=== PATIENT | male | born 1995 | race Two or more races ===

== ENCOUNTER 2020-03-29 18:39 | Inpatient (IN) | payer OTHER ==
[~2020-03-29] VITALS: Ht 172.7 cm; Wt 94.1 kg
[2020-03-29] MEDS ORDERED: OMNIPAQUE 350 MG/ML, 100ML BOTTLE ONE (19:51)
[2020-03-29 20:02] LABS: BASOPHILS % (AUTO) 1 % (0-1); EOSINOPHILS % (AUTO) 1 % (1-7); LYMPHOCYTES % (AUTO) 35 % (22-44); MEAN CORPUSCULAR HEMOGLOBIN 30.7 pg (27.5-34.5); MEAN CORPUSCULAR HGB CONC 35.8 g/dL (33.2-36.2); MEAN PLATELET VOLUME 8.4 fL (7.4-10.4); MONOCYTES % (AUTO) 9 % (2-9); NEUTROPHILS % (AUTO) 54 % (42-75); PLATELET COUNT 338 x10^3/uL (130-400); RED BLOOD COUNT 5.66 x10^6/uL (4.38-5.82); RED CELL DISTRIBUTION WIDTH 12.9 % (9.4-14.8)
[2020-03-29 20:14] LABS: ALANINE AMINOTRANSFERASE 49 U/L (12-78); ALBUMIN 4.4 g/dL (3.4-5.0); ANION GAP 8 mmol/L (5-15); CHLORIDE 106 mmol/L (98-107); CREATININE 1.15 mg/dL (0.7-1.3)
[2020-03-29 20:25] LABS: ALKALINE PHOSPHATASE 110 U/L (45-117); BILIRUBIN,TOTAL 0.5 mg/dL (0.2-1.0); FREE T4 (FREE THYROXINE) 1.04 ng/dL (0.76-1.46); TOTAL PROTEIN 8.4 g/dL (6.4-8.2); TROPONIN I < 0.015 ng/mL (0.000-0.045)
[2020-03-29] MEDS ORDERED: LORazepam 2 MG/ML, 1ML ONE (20:28)
[2020-03-29] MEDS ORDERED: LORazepam 2 MG/ML, 1ML IVPush ONE (20:30)
[2020-03-29 20:32] LABS: MD SCAN
[2020-03-29] MEDS ORDERED: SODIUM CHLORIDE 0.9% 1,000ML IVBOLUS ONE (21:30)
[2020-03-29 22:01] LABS: AMPHETAMINE SCREEN, URINE Negative (Negative); BARBITURATE SCREEN, URINE Negative (Negative); BENZODIAZEPINE SCREEN, URINE Negative (Negative); CANNABINOID SCREEN, URINE Negative (Negative); COCAINE SCREEN, URINE Negative (Negative); METHADONE SCREEN, URINE Negative (Negative); OPIATE SCREEN, URINE Negative (Negative)
--- NOTE | 2020-03-29 22:26 | NUR ---
Pt remains in tachy rhythm, BP stable, pt remains p/w/d. NS #2 infusing. Family at bedside. pt denies CP and occasionaly SOB. Pt able to stand at bedside and use urinal.
[2020-03-29] MEDS ORDERED: NS + 20MEQ KCL 1,000 ML IV SCH (23:30)
[2020-03-29] MEDS ORDERED: ACETAMINOPHEN 325 MG TABLET PO PRN (23:30)
[2020-03-29] MEDS ORDERED: DOCUSATE 100 MG CAPSULE PO PRN (23:30)
[2020-03-29 23:53] LABS: ANION GAP 4 mmol/L (5-15); CALCIUM 8.3 mg/dL (8.5-10.1); CHLORIDE 111 mmol/L (98-107); CREATININE 0.92 mg/dL (0.7-1.3)
--- NOTE | 2020-03-30 00:58 | NUR ---
PT AMBULATORY TO BR WITHOUT DIFFICULTY. PT BACK TO BED AND ATTACHED TO MONITOR. PT REMAINS A&O WITH STABLE BP. PT REMAINS P/W/D. REPORT CALLED TO [facility] PARDO . PT READY FOR TRANSPORT.
[2020-03-30 01:56] VITALS: BP 133/78
[2020-03-30 02:07] LABS: TROPONIN I < 0.015 ng/mL (0.000-0.045)
[2020-03-30 05:48] VITALS: BP 137/93
[2020-03-30 07:50] LABS: BASOPHILS % (AUTO) 0 % (0-1); EOSINOPHILS % (AUTO) 0 % (1-7); LYMPHOCYTES % (AUTO) 19 % (22-44); MEAN CORPUSCULAR HEMOGLOBIN 30.2 pg (27.5-34.5); MEAN CORPUSCULAR HGB CONC 34.8 g/dL (33.2-36.2); MEAN PLATELET VOLUME 7.9 fL (7.4-10.4); MONOCYTES % (AUTO) 6 % (2-9); NEUTROPHILS % (AUTO) 74 % (42-75); PLATELET COUNT 318 x10^3/uL (130-400); RED BLOOD COUNT 5.35 x10^6/uL (4.38-5.82); RED CELL DISTRIBUTION WIDTH 12.9 % (9.4-14.8)
[2020-03-30 07:51] LABS: MD NO
[2020-03-30 08:05] LABS: TROPONIN I < 0.015 ng/mL (0.000-0.045)
[2020-03-30 08:17] VITALS: BP 146/71
[2020-03-30] MEDS: NICOTINE 14MG/24 HR PATCH.TD24 TD SCH (09:00)
[2020-03-30 10:26] LABS: MICROSCOPIC NOT IND
[2020-03-30 12:12] VITALS: BP 115/78
[2020-03-30 19:56] VITALS: BP 121/81
[2020-03-31 01:45] VITALS: BP 120/82
[2020-03-31 06:33] VITALS: BP 112/77
[2020-03-31 06:46] LABS: BASOPHILS % (AUTO) 1 % (0-1); EOSINOPHILS % (AUTO) 1 % (1-7); LYMPHOCYTES % (AUTO) 39 % (22-44); MEAN CORPUSCULAR HEMOGLOBIN 30.6 pg (27.5-34.5); MEAN CORPUSCULAR HGB CONC 34.7 g/dL (33.2-36.2); MEAN PLATELET VOLUME 8.8 fL (7.4-10.4); MONOCYTES % (AUTO) 10 % (2-9); NEUTROPHILS % (AUTO) 50 % (42-75); PLATELET COUNT 298 x10^3/uL (130-400); RED BLOOD COUNT 5.54 x10^6/uL (4.38-5.82)
[2020-03-31 07:01] LABS: CHLORIDE 109 mmol/L (98-107)
[2020-03-31 07:22] LABS: MD SCAN
[2020-03-31 07:29] LABS: ALANINE AMINOTRANSFERASE 37 U/L (12-78); ALBUMIN 4.2 g/dL (3.4-5.0); ALKALINE PHOSPHATASE 87 U/L (45-117); ANION GAP 10 mmol/L (5-15); BILIRUBIN,TOTAL 1.1 mg/dL (0.2-1.0); CALCIUM 9.3 mg/dL (8.5-10.1); CREATININE 1.01 mg/dL (0.7-1.3); TOTAL PROTEIN 7.8 g/dL (6.4-8.2)
[2020-03-31] MEDS: NICOTINE 14MG/24 HR PATCH.TD24 TD SCH (09:00)
[2020-03-31] MEDS ORDERED: SODIUM CHLORIDE 0.9% 500 ML IV SCH (11:00)
[2020-03-31] MEDS ORDERED: HYDR-826 PO (13:51)
[2020-03-31 14:03] VITALS: BP 108/75
[2020-03-31] MEDS ORDERED: FLU VACC QS2020-21(6MOS UP)/PF 60MCG/0.5 ML SYR IM-VACC ONE (14:30)
== END 2020-03-31 16:00 | disposition home or self-care (01) | DRG 313 ==
LOC: ED 21:57 → EDIP 23:29 → INTOOBSV 23:29 → 4WST 03-30 01:13 → OBSVTOIN 03-31 11:42 → DCLOUNGE 03-31 15:55
PROVIDERS: ADMIT Family Medicine; ATTEND Family Medicine
DX: R07.9 Chest pain, unspecified (principal); R00.0 Tachycardia, unspecified; E86.0 Dehydration; F41.9 Anxiety disorder, unspecified; J45.909 Unspecified asthma, uncomplicated; Z20.822 Contact with and (suspected) exposure to COVID-19; D72.829 Elevated white blood cell count, unspecified; R94.31 Abnormal electrocardiogram [ECG] [EKG]; F17.210 Nicotine dependence, cigarettes, uncomplicated; Z72.89 Other problems related to lifestyle; Z71.6 Tobacco abuse counseling; Z23 Encounter for immunization
CPT/HCPCS: 36415; 71045; 71275; 80048; 80053; 80307; 81003; 82607; 83605; 83735; 83880; 84100; 84439; 84443; 84484; 85025; 85379; 87635; 90686; 93005; 93306; 96374; 99285; G0378; J3480; Q9967; J2060; J7030; J7040; Q0177